=== PATIENT | male | born 1980 | race Caucasian/White ===

== ENCOUNTER 2019-01-12 13:45 | Emergency (ER) | payer SELFPAY ==
[~2019-01-12] VITALS: Ht 170.2 cm; Wt 99.8 kg
[~2019-01-12 13:45] MED LIST: ATOR10TA PO; FENO145T32 PO; TEMA15CA PO; VARE1TAB20 PO; VARE1TAB21 PO
--- NOTE | 2019-01-12 14:36 | PHYS DOC ---
Past History Past Medical History: Hypertension, Other Past Surgical History: Other Alcohol Use: None Adult General Chief Complaint Chief Complaint: FINGER INJURY HPI HPI 38-year-old male presents after exposure to hydrofluoric acid. 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 The trigger on the spray gun was leaking. He read the SDDS report and was concerned. He called poison control and they advised him to thoroughly rinse it in Epsom salt as well as a Tums/Vaseline combination paste. When the patient did this, the pain improved significantly. He came in today just to make sure there is no smell see need to do. His skin is intact. There are no blisters. He has occasional zinging pain proximal in the finger and the distal finger is somewhat swollen. Review of Systems Review of Systems Constitutional: Denies fever or chills [] Eyes: Denies change in visual acuity, redness, or eye pain [] HENT: Denies nasal congestion or sore throat [] Respiratory: Denies cough or shortness of breath [] Cardiovascular: No additional information not addressed in HPI [] GI: Denies abdominal pain, nausea, vomiting, bloody stools or diarrhea [] : Denies dysuria or hematuria [] Musculoskeletal: Denies back pain or joint pain [] Integument: Chemical exposure[] Neurologic: Denies headache, focal weakness or sensory changes [] Endocrine: Denies polyuria or polydipsia [] All other systems were reviewed and found to be within normal limits, except as documented in this note. Allergies Allergies Allergies Coded Allergies Type Severity Reaction Last Updated Verified No Known Drug Allergies 04/17/15 No Physical Exam Physical Exam Constitutional: Well developed, well nourished, no acute distress, non-toxic appearance. [] HENT: Normocephalic, atraumatic, bilateral external ears normal, oropharynx moist, no oral exudates, nose normal. [] Eyes: PERRLA, EOMI, conjunctiva normal, no discharge. [] Neck: Normal range of motion, no tenderness, supple, no stridor. [] Cardiovascular:Heart rate regular rhythm, no murmur [] Lungs & Thorax: Bilateral breath sounds clear to auscultation [] Abdomen: Bowel sounds normal, soft, no tenderness, no masses, no pulsatile masses. [] Skin: Skin of the distal right index finger is mildly swollen without erythema or blistering. It is intact.[] Back: No tenderness, no CVA tenderness. [] Extremities: No tenderness, no cyanosis, no clubbing, ROM intact, no edema. [] Neurologic: Alert and oriented X 3, normal motor function, normal sensory function, no focal deficits noted. [] Psychologic: Affect normal, judgement normal, mood normal. [] EKG EKG [] Radiology/Procedures Radiology/Procedures [] Course & Med Decision Making Course & Med Decision Making Pertinent Labs and Imaging studies reviewed. (See chart for details) The patient followed the directions of poison control. Based on my exam, I do not believe he had significant absorption into his skin. He certainly had less than 25 in.� of exposure. This level of exposure can be hazardous. I do not see evidence of significant burn. I have advised patient to watch out for blistering and possible skin loss. If his condition worsens or any new symptoms develop, he will return to the emergency room. He is stable for discharge at this time. [] Dragon Disclaimer Dragon Disclaimer This electronic medical record was generated, in whole or in part, using a voice recognition dictation system. Departure Departure: Impression: Primary Impression: Occupational exposure to chemicals Disposition: HOME, SELF-CARE Condition: STABLE Referrals: SASCHA CASILLAS MD (PCP) Patient Instructions: Chemical Burn, [id number] JACKIE MOSELEY DO Jan 12, 2019 14:36
[2019-01-12 14:45] VITALS: BP 158/98
== END 2019-01-12 14:50 | disposition home or self-care (01) ==
LOC: ER 13:45
DX: Z77.098 Contact with and (suspected) exposure to other hazardous, chiefly nonmedicinal, chemicals (principal); I10 Essential (primary) hypertension
CPT/HCPCS: 99281

== ENCOUNTER 2020-09-25 07:42 | Emergency (ER) | payer BC ==
[~2020-09-25] VITALS: Ht 170.2 cm; Wt 100.0 kg
[2020-09-25] MEDS ORDERED: IBUPROFEN 400 MG TABLET. PO ONE (08:15)
[2020-09-25 08:19] VITALS: BP 173/101
--- NOTE | 2020-09-25 08:23 | PHYS DOC ---
Past History Past Medical History: Alcoholism, Asthma, Hypertension, Other Past Surgical History: Other Smoking: Cigarettes Alcohol Use: Sober Drug Use: None Adult General Chief Complaint Chief Complaint: HEADACHE HPI HPI Patient is a 40-year-old male presenting for concerns of headache, chills, lower back spasms, nausea, and subjective fever for 1 day. He reports he received the Son [employer] Son Covid vaccine yesterday at 10 AM and reports he went to work with symptom onset beginning on his drive home from work yesterday. Reports awakening with "shaking"in his low back at 2 AM that did not radiate anywhere. He reports he had 4 instances of these events and has not had one since pre senting to the emergency room today. Denies seizure history, ingestion, chest pain, worsening shortness of breath, vomiting, or changes in urination/defecation. He has not tried any Motrin or Tylenol for symptomatic care prior to presenting for evaluation. Review of Systems Review of Systems Constitutional: Admits fever or chills Eyes: Denies change in visual acuity, redness, or eye pain HENT: Denies nasal congestion or sore throat Respiratory: Denies new cough or shortness of breath [] Cardiovascular: No additional information not addressed in HPI, denies chest pain GI: Denies abdominal pain, vomiting, bloody stools or diarrhea. Admits nausea : Denies dysuria or hematuria Musculoskeletal: Denies back pain or joint pain. Admits low back muscle spasm. Integument: Denies rash or skin lesions Neurologic: Denies focal weakness or sensory changes. Admits headache Endocrine: Denies polyuria or polydipsia All other systems were reviewed and found to be within normal limits, except as documented in this note. Allergies Allergies Allergies Coded Allergies Type Severity Reaction Last Updated Verified No Known Drug Allergies 04/17/15 No Physical Exam Physical Exam Constitutional: Well developed, well nourished, no acute distress, non-toxic appearance. HENT: Normocephalic, atraumatic, bilateral external ears normal, oropharynx moist, no oral exudates, nose normal. Eyes: PERRLA, EOMI, conjunctiva normal, no discharge. Neck: Normal range of motion, no tenderness, supple, no stridor. Cardiovascular:Heart rate regular rhythm, no murmur Lungs & Thorax: Bilateral breath sounds with scattered inspiratory and expiratory wheezing. Patient is satting 97% on room air. Abdomen: Bowel sounds normal, soft, no tenderness, no masses, no pulsatile masses. Skin: Warm, dry, no erythema, no rash. Back: No tenderness, no CVA tenderness. Extremities: No tenderness, no cyanosis, no clubbing, ROM intact, no edema. Neurologic: Alert and oriented X 3, normal motor function, normal sensory function, no focal deficits noted. Psychologic: Affect normal, judgement normal, mood normal. EKG EKG [] Radiology/Procedures Radiology/Procedures [] Heart Score C/O Chest Pain: No Risk Factors: Risk Factors: DM, Current or recent (<one month) smoker, HTN, HLP, family history of CAD, obesity. Risk Scores: Risk Factors: DM, Current or recent (<one month) smoker, HTN, HLP, family history of CAD, obesity. Course & Med Decision Making Course & Med Decision Making Patient is a 40-year-old male presenting with headache, muscle aches/pain/spasm, nausea, subjective fevers and chills after recent Son [employer] Son Covid vaccination. On exam patient was well appearing and not hypoxic on room air. Patient was given a dose of ibuprofen in the emergency room and advised to continue using ibuprofen or Tylenol at home as needed for symptomatic care. Blood pressure is also high on presentation, this is known and chronic to patient. He sees local primary care physician but has not followed up in a "long time". Advised continued supportive care, to keep a dedicated blood pressure log and call his PCP immediately after ER departure to discuss next steps in care and schedule outpatient follow-up for repeat evaluation. Patient was agreeable to the plan of care and vocalized understanding of the return precautions provided. Dragon Disclaimer Dragon Disclaimer This electronic medical record was generated, in whole or in part, using a voice recognition dictation system. Departure Departure: Impression: Primary Impression: Vaccine reaction Additional Impressions: Headache Body aches after vaccination Disposition: 01 DC HOME SELF CARE/HOMELESS Condition: GOOD Referrals: SASCHA CASILLAS MD (PCP) Additional Instructions: You were seen today with a probable adverse reaction to the Covid vaccine. On exam you are well-appearing and displayed no concerning signs or symptoms. We recommend that you follow-up with your primary care physician to manage her hy pertension and continue to manage your symptoms at home with ibuprofen or Tylenol. If you develop worsening shortness of breath, chest pain, trouble swallowing, or any other signs or symptoms that concern you please present for reevaluation. Problem Qualifiers Primary Impression: Vaccine reaction Encounter type: initial encounter Qualified Codes: T50.Z95A - Adverse effect of other vaccines and biological substances, initial encounter Additional Impressions: Headache Headache type: unspecified Headache chronicity pattern: unspecified pattern Intractability: intractable Qualified Codes: R51.9 - Headache, unspecified ZACKARY SHIPMAN DO Sep 25, 2020 08:23
== END 2020-09-25 08:36 | disposition home or self-care (01) ==
LOC: ER 07:42
DX: R51.9 Headache, unspecified (principal); T50.B95A Adverse effect of other viral vaccines, initial encounter; M79.10 Myalgia, unspecified site; I10 Essential (primary) hypertension; J45.909 Unspecified asthma, uncomplicated; F17.210 Nicotine dependence, cigarettes, uncomplicated; Y84.8 Other medical procedures as the cause of abnormal reaction of the patient, or of later complication, without mention of misadventure at the time of the procedure; Y92.89 Other specified places as the place of occurrence of the external cause
CPT/HCPCS: 99282

== ENCOUNTER 2021-08-24 22:41 | Emergency (ER) | payer BC ==
[~2021-08-24] VITALS: Ht 170.2 cm; Wt 99.0 kg
[2021-08-24] MEDS ORDERED: NITROGLYCERIN SUBLINGUAL 0.4 MG BOTTLE OF 25. SL PRN (23:00)
[2021-08-24] MEDS ORDERED: MORPHINE SULFATE 2 MG/ML DISP.SYRIN. IV/SQ PRN (23:00)
[2021-08-24] MEDS ORDERED: ASPIRIN CHEWABLE 81 MG TABLET. PO ONE (23:00)
[2021-08-24] MEDS ORDERED: NITROGLYCERIN SUBLINGUAL 0.4 MG BOTTLE OF 25. SL ONE (23:02)
[2021-08-24] MEDS ORDERED: MORPHINE SULFATE 2 MG/ML DISP.SYRIN. ONE (23:03)
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
[2021-08-24 23:29] LABS: BASO # 0.1 x10^3/uL (0.0-0.2); BASO % 1 % (0-3); EOS # 0.2 x10^3/uL (0.0-0.7); EOS % 3 % (0-3); LYMPH # 2.5 x10^3/uL (1.0-4.8); LYMPH % 27 % (24-48); MEAN CORPUSCULAR HEMOGLOBIN 33 pg (25-35); MEAN CORPUSCULAR HGB CONC 35 g/dL (31-37); MEAN CORPUSCULAR VOLUME 96 fL (79-100); MONO % 11 % (0-9); NEUT # 5.3 x10^3uL (1.8-7.7); NEUT % 58 % (31-73); PLATELET COUNT 255 x10^3/uL (140-400); RED CELL DISTRIBUTION WIDTH 12.9 % (11.5-14.5); WHITE BLOOD COUNT 9.2 x10^3/uL (4.0-11.0)
[2021-08-24 23:38] LABS: CREATININE 1.1 mg/dL (0.7-1.3); GFR 73.4; POTASSIUM 3.7 mmol/L (3.5-5.1)
[2021-08-24] MEDS ORDERED: CONTRAST GIVEN. MC PRN (23:45)
[2021-08-24] MEDS ORDERED: IOHEXOL 350 MG/ML 100 ML VIAL. IV ONE (23:45)
[2021-08-24 23:46] LABS: ALBUMIN 3.9 g/dL (3.4-5.0); ALBUMIN/GLOBULIN RATIO 1.2 (1.0-1.7); TOTAL BILIRUBIN 0.2 mg/dL (0.2-1.0); TOTAL PROTEIN 7.1 g/dL (6.4-8.2)
--- NOTE | 2021-08-25 00:27 | RAD ---
EXAMINATION: Chest radiograph. VIEWS: 1 COMPARISON: 04/17/2015 INDICATION:41 years, Male, chest pain. FINDINGS: Normal cardiomediastinal silhouette. No focal consolidation. Large left pneumothorax with associated compressive atelectasis of the left lung. No significant midline shift. No pleural effusion. No acute osseous process. IMPRESSION: Large left pneumothorax with associated compressive atelectasis of the left lung. No significant midl ine shift to suggest tension pneumothorax at this time. FOR INTERNAL CODING PURPOSES Critical result: Findings discussed with VINCENT HERNANDEZ APRN at 08/25/2021 12:23 AM. RESULT CODE: (C) Electronically signed by: Hoda Sahni MD (08/25/2021 12:25 AM) [facility]
--- NOTE | 2021-08-25 00:37 | RAD ---
EXAMINATION: CTA Chest With IV contrast INDICATION:41 years, Male, chest pain, shortness of breath. COMPARISON: Same day radiograph. TECHNIQUE: Spiral CTA was obtained from the jugular notch through the posterior costophrenic recess. 3-D MIPS, sagittal and coronal reformats were obtained. Exposure: One or more of the following individualized dose reduction techniques were utilized for thi s examination: 1. Automated exposure control 2. Adjustment of the mA and/or kV according to patient size 3. Use of iterative reconstruction technique. FINDINGS: Suboptimal exam due to respiratory motion artifact. LUNGS/PLEURA: Central airways are patent. Redemonstrated large left pneumothorax with associated atel ectatic changes of the left lung. Moderate centrilobular and paraseptal emphysema in the upper lobes. No pleural effusion. No suspicious pulmonary nodule. MEDIASTINUM: No significant mediastinal shift. No pathologic mediastinal or hilar adenopathy. The tho racic aorta and pulmonary arteries are normal in caliber. No evidence of pulmonary embolism. The hear t is normal in size. No pericardial effusion. No detectable calcified coronary atherosclerosis. The v isualized thyroid and the esophagus are unremarkable. AXILLA/SOFT TISSUE: No supraclavicular or axillary adenopathy. Regional soft tissues are within socorro l limits. UPPER ABDOMEN: Partially imaged 9 mm fat density lesion in the right adrenal gland, suggesting of mye lolipoma. BONES: No evidence of acute fractures or aggressive osseous lesions. IMPRESSION: 1. Suboptimal exam due to respiratory motion artifact. No evidence of pulmonary embolism. 2. Redemonstrated large left pneumothorax with associated atelectatic changes of the left lung. No s ignificant mediastinal shift. 3. Moderate pulmonary emphysema in the upper lobes. Electronically signed by: Hoda Sahni MD (08/25/2021 12:35 AM) [facility]
[2021-08-25] MEDS ORDERED: LIDOCAINE 2%/EPI 1:100,000 20 ML VIAL. IJ ONE (00:45)
[2021-08-25] MEDS ORDERED: MORPHINE SULFATE 4 MG/ML DISP.SYRIN. ONE (01:22)
[2021-08-25] MEDS ORDERED: MORPHINE SULFATE 4 MG/ML DISP.SYRIN. IV ONE (01:30)
[2021-08-25 01:38] VITALS: BP 131/96
--- NOTE | 2021-08-25 02:04 | RAD ---
EXAMINATION: Chest radiograph. VIEWS: 1 COMPARISON: Same day radiograph and CT chest INDICATION:41 years, Male, Post chest tube placement. FINDINGS/ IMPRESSION: Placement of left pleural drain catheter with no definite residual pneumothorax. Improved aeration of the left lung. Subsegmental atelectatic changes in the left lung base. No other significant changes since earlier exam. Electronically signed by: Hoda Sahni MD (08/25/2021 2:01 AM) [facility]
--- NOTE | 2021-08-25 06:43 | EKG ---
[address] [address] Test Date: 2021-08-24 Test Time: 22:53:48 Pat Name: GIOVANI MONTERO Department: Room: Gender: M Ends Breakage Clerk: JASMINA : 1980 Requested By: VINCENT HERNANDEZ Order Number: [id number] Reading MD: Donovan Paniagua Measurements Intervals [place] Rate: 106 P: 77 NV: 138 QRS: 75 QRSD: 90 T: 64 QT: 330 QTc: 440 Interpretive Statements SINUS TACHYCARDIA LEFT ATRIAL ABNORMALITY LOW LIMB LEAD VOLTAGE T ABNORMALITY IN ANTERIOR LEADS ABNORMAL ECG Electronically Signed On 08-27-2021 8:40:41 SR RISK MANAGEMENT CONSULTANT by Donovan Paniagua
== END 2021-08-25 02:00 | disposition short-term general hospital (02) ==
LOC: ER 22:41
DX: J93.9 Pneumothorax, unspecified (principal); F10.20 Alcohol dependence, uncomplicated; J45.909 Unspecified asthma, uncomplicated; I10 Essential (primary) hypertension; F17.210 Nicotine dependence, cigarettes, uncomplicated; Y90.9 Presence of alcohol in blood, level not specified
CPT/HCPCS: 32551; 36415; 71045; 71275; 80053; 83690; 84484; 85025; 85379; 85610; 85730; 93005; 96374; 96376; 99285; J2270

== ENCOUNTER → 2021-11-17 | Outpatient (CLI) | payer BC ==
--- NOTE | 2021-11-18 14:11 | RAD ---
XR CHEST 2V History: Cough, COPD, short of air Comparison: 08/25/2021, 08/27/2021 Technique: PA and lateral chest radiographs. Findings: The lungs are adequately inflated. There are hazy bilateral lower lobe airspace opacities. No pleural effusion or pneumothorax. The cardiomediastinal silhouette and pulmonary vasculature are within norm al limits. Soft tissues and osseous structures are unremarkable. Impression: 1. Hazy bilateral lower lobe airspace opacities may represent multifocal infection. Electronically signed by: Evans Jay MD (11/18/2021 8:25 AM) [id number]
== END ==
LOC: RAD 16:57
PROVIDERS: ATTEND Physician Assistant
DX: J98.4 Other disorders of lung (principal)
CPT/HCPCS: 71046